=== PATIENT | female | born 1995 | race Caucasian/White ===

== ENCOUNTER 2017-11-07 15:04 | Emergency (ER) | payer OTHER ==
[~2017-11-07] VITALS: Ht 157.5 cm; Wt 66.2 kg
[2017-11-07] MEDS ORDERED: KEFLEX500 MG PO (15:39)
[2017-11-07 16:21] VITALS: BP 122/84
== END 2017-11-07 16:30 | disposition home or self-care (01) ==
LOC: EME 15:04
PROC: 3E0234Z Introduction of Serum, Toxoid and Vaccine into Muscle, Percutaneous Approach (ICD-10-PCS; principal; 2017-11-07)
DX: S01.81XA Laceration without foreign body of other part of head, initial encounter (principal); W19.XXXA Unspecified fall, initial encounter; Z23 Encounter for immunization
CPT/HCPCS: 99281; 99283